=== PATIENT | male | born 1950 | race Hispanic/Latino ===

== ENCOUNTER → 2020-06-28 | Day surgery (SDC) | payer MEDICARE, OTHER ==
[2020-06-25 10:17] LABS: BASOPHILS # (AUTO) 0.1 (0.0-0.1); BASOPHILS % 0.7 % (0.0-1.0); EOSINOPHILS # (AUTO) 0.1 (0.0-0.4); EOSINOPHILS % 1.4 % (0.0-6.0); HEMATOCRIT 44.1 % (38.2-49.6); HEMOGLOBIN 14.2 g/dL (14.0-18.0); LYMPHOCYTES # (AUTO) 2.6 (1.0-3.2); MEAN CORPUSCULAR HEMOGLOBIN 28.7 pg (28-32); MEAN CORPUSCULAR HGB CONC 32.2 g/dL (31-35); MEAN CORPUSCULAR VOLUME 89.3 fL (81-99); MONOCYTES # (AUTO) 0.5 (0.2-0.8); MONOCYTES % 7.5 % (4.4-11.3); NEUTROPHILS # (AUTO) 3.7 (2.1-6.9); PLATELET COUNT 276 x10e3/uL (140-360); RED BLOOD COUNT 4.94 x10e6/uL (4.3-5.7); RED CELL DISTRIBUTION WIDTH 13.7 % (11.7-14.4)
--- NOTE | 2020-06-25 10:51 | Diagnostic Imaging Report ---
EXAMINATION: CHEST 2 VIEWS INDICATION: PRE-OP COMPARISON: None FINDINGS: TUBES and LINES: None. LUNGS: Lungs are well inflated. There is no evidence of pneumonia or pulmonary edema. PLEURA: No pleural effusion or pneumothorax. HEART AND MEDIASTINUM: The cardiomediastinal silhouette is unremarkable. BONES AND SOFT TISSUES: No acute osseous lesion. Soft tissues are unremarkable. UPPER ABDOMEN: No free air under the diaphragm. IMPRESSION: No acute thoracic abnormality. Signed by: Dr. Audelia Galloway MD on 06/25/2020 10:47 AM
[~2020-06-28] MED LIST: ALLOPURINOL100 MG PO; CEFTRIAXONE SOD 1 GM/NS 50 ML 50 ML IV ONE; CENTRUM SILVER1 EAC4 PO; DEXAMETHASONE SOD PHOS INJ 4 MG/ML VIAL ONE; FENTANYL CITRATE/PF 100MCG/2 ML INJ ONE; IOPAMIDOL 300MG/ML 50ML INFUS..BTL IV ONE; LIDOCAINE HCL 2% LOCAL INJ 5 ML SDV VIAL INJ ONE; MEGA RED PO; MIDAZOLAM HCL 2 MG/2 ML VIAL ONE; OMEPRAZOLE40 MG PO; ONDANSETRON HCL INJ 2MG/ML 2ML 2 MG/ML VIAL ONE; PATANASE30.5 GM INH; PROPOFOL IV EMULSION 10 MG/ML 20 ML VIAL ONE; RAMIPRIL5 MG PO; SEVOFLURANE INHAL SOLN 250 ML PEN BTL ONE; ZYRTEC10 M3 PO
--- NOTE | 2020-06-28 07:15 | NUR ---
SPIRITUAL CARE - Pre-Surgery Assessment: Pt in bed. Pt's sister at bedside. Pt identified as Advent. Pt reported supportive attention from family and friends. Intervention: Electrical Technician provided pastoral presence, hospitality, and sympathetic listening. Acquainted pt with availability of instructional services librarian while hospitalized. Outcome: Pt expressed appreciation for visit. No need for follow up indicated at this time. [facility] Spiritual Care Department O: [phone]
[2020-06-28 09:55] VITALS: BP 148/78
--- NOTE | 2020-07-13 00:32 | Operative Report ---
DATE OF PROCEDURE: 06/28/2020 SURGEON: Mejia Kaplan MD PREOPERATIVE DIAGNOSIS: Bladder stone. POSTOPERATIVE DIAGNOSIS: Bladder stone. OPERATIVE PROCEDURE: Cystolitholapaxy. ANESTHESIA: General anesthesia. ESTIMATED BLOOD LOSS: Minimal. INDICATIONS: Mr. Ervin is a 69-year-old gentleman with a long history of irritative bladder symptoms. He was found on office cystoscopy to have a bladder stone. He now presents for management of this problem. PROCEDURE IN DETAIL: The patient was brought into the operating room, placed in supine position and after initiation of general anesthesia, was placed in the dorsal lithotomy position and prepped and draped in the usual sterile fashion. Cystourethroscopy was performed using 21-Arabic cystoscope. The anterior and posterior urethra were noted to be normal. The prostate revealed lateral lobar hyperplasia with moderate elevation of the median bar. The bladder was entered with mild difficulty. Upon entrance into the bladder, the patient was noted to have a large diverticulum just lateral to the right ureteral orifice. There was a large stone noted in this diverticulum. The patient was also noted to have some smaller stones noted in the region of the trigone. There was what appeared to be moderate obstruction of the outflow from above the median lobe. The 1000 micron fiber was then used to break the stone down into multiple smaller fragments. Many of these were irrigated free, but the larger fragments were grasped with a basket and removed in their entirety. All of these stone fragments were ultimately sent to pathology for microscopic analysis. At the conclusion of the procedure, there was no obvious injury to the bladder wall and no stone fragments left in situ in the bladder. The bladder was then left full and the cystoscope and sheath were removed. The patient was noted to have a brisk urinary flow with coude. He returned to supine position and anesthesia was reversed. He was transferred to a bed and taken to the postanesthesia care unit in good condition. Of note, the needle and instrument count were correct at the conclusion of the case. Mejia Kaplan MD HLW/MODL /[id number]
== END | disposition home or self-care (01) ==
LOC: OR 05:17
PROVIDERS: ATTEND Urology
DX: N21.0 Calculus in bladder (principal); K21.9 Gastro-esophageal reflux disease without esophagitis; I10 Essential (primary) hypertension
CPT/HCPCS: 36415; 52318; 71046; 76000; 85025; 88300; 93005; J0696; J1100; J2001; J2250; J2405; J2704; J3010; U0002